=== PATIENT | female | born 1955 | race Caucasian/White ===

== ENCOUNTER 2021-06-26 08:40 | Emergency (ER) | payer BC ==
[2021-06-26] MEDS ORDERED: Ondansetron 4 MG/2 ML SDV IVPUSH ONE (08:58)
[2021-06-26 09:38] LABS: CORONAVIRUS COVID-19 NAA NEGATIVE (NEGATIVE)
[2021-06-26] MEDS ORDERED: diphenhydrAMINE 50 MG/ML SDV IVPUSH ONE (09:40)
== END 2021-06-26 10:55 | disposition home or self-care (01) ==
LOC: DL.ED 08:40
DX: T78.40XA Allergy, unspecified, initial encounter (principal); Z20.822 Contact with and (suspected) exposure to COVID-19
CPT/HCPCS: 0240U; 87081; 87430; 96374; 96375; 99283; J1200; J2405

== ENCOUNTER 2022-10-21 05:29 | Day surgery (SDC) | payer MEDICARE, BC ==
[~2022-10-21 05:29] MED LIST: Dextrose 5%-0.45% NaCl 1,000 ML IV SCH; Sodium Chloride 0.9% 10 ML Syringe FLUSH PRN; Sodium Chloride 0.9% 10 ML Syringe FLUSH SCH
[2022-10-21] MEDS ORDERED: Dextrose 5%-0.45% NaCl 1,000 ML IV SCH ×2 (06:00)
[2022-10-21] MEDS ORDERED: Midazolam 1 MG/ML 2 ML SDV ONE (06:01)
[2022-10-21] MEDS ORDERED: fentaNYL 100 MCG/2 ML SDV ONE (06:01)
[2022-10-21] MEDS ORDERED: fentaNYL 100 MCG/2 ML SDV IV ONE ×6 (06:21→06:34)
[2022-10-21] MEDS ORDERED: Midazolam 1 MG/ML 2 ML SDV IV ONE ×6 (06:22→06:28)
== END 2022-10-21 09:00 | disposition home or self-care (01) ==
LOC: DL.ENDO 05:29
PROVIDERS: ATTEND Internal Medicine Gastroenterology
DX: Z12.11 Encounter for screening for malignant neoplasm of colon (principal); E78.00 Pure hypercholesterolemia, unspecified; E03.9 Hypothyroidism, unspecified; Z88.6 Allergy status to analgesic agent; Z88.0 Allergy status to penicillin; Z88.1 Allergy status to other antibiotic agents; Z90.49 Acquired absence of other specified parts of digestive tract; Z98.890 Other specified postprocedural states
CPT/HCPCS: G0105; J2250; J3010; J7042